=== PATIENT | male | born 1965 | race Caucasian/White ===

== ENCOUNTER 2024-12-15 15:10 | Emergency (ER) | payer BC, OTHER ==
[2024-12-15 15:46] LABS: STREP A BY PCR NOT DETECTED (NOT DETECT)
[2024-12-15 16:00] LABS: CORONAVIRUS COVID-19 NAA NEGATIVE (NEGATIVE); INFLUENZA A NAA NEGATIVE (NEGATIVE); INFLUENZA B NAA NEGATIVE (NEGATIVE); RESPIRATORY SYNCYTIAL VIR NAA NEGATIVE (NEGATIVE)
== END 2024-12-15 17:36 | disposition home or self-care (01) ==
LOC: JP.ED 15:10
DX: J06.9 Acute upper respiratory infection, unspecified (principal)
CPT/HCPCS: 87637; 87651; 94640; 99285; J7620; 99283; A9270-GY